=== PATIENT | male | born 1995 | race Asian ===

== ENCOUNTER 2024-09-15 07:41 | Outpatient (REF) | payer OTHER, SELFPAY ==
--- NOTE | ~2024-09-15 | US_ITS ---
CLINICAL HISTORY: [facility] US abdomen complete Comparison: None Findings: Gallbladder unremarkable, no stone formation or wall thickening. Common duct measures 2.3 mm. No sonographic Clark sign. Fatty infiltration of the liver without focal abnormality. Main portal vein patent with normal direction of flow. Pancreas is unremarkable. Aorta and IVC patent and normal in caliber. The right kidney is normal, 10.6 cm in length. No focal abnormality or hydronephrosis. The left kidney is normal, 11.4 cm in length. No focal abnormality or hydronephrosis. The spleen is normal, 9.1 cm in length. No focal abnormality. Impression: No significant abnormalities. This document has been electronically signed by: Tone Murphy MD on 09/15/2024 20:24:44
== END 2024-09-15 07:42 | disposition home or self-care (01) ==
LOC: HO.UMASIMG 07:41
PROVIDERS: Visit Provider Nurse Practitioner Family
DX: E66.3 Overweight (principal); K76.0 Fatty (change of) liver, not elsewhere classified
CPT/HCPCS: 76700

== ENCOUNTER → 2024-09-15 08:30 | Outpatient (BNV) | payer OTHER, SELFPAY | PROVIDERS: Visit Provider Radiology Diagnostic Radiology | DX: K75.81 Nonalcoholic steatohepatitis (NASH) (principal) | CPT/HCPCS: 76700 ==